=== PATIENT | female | born 2000 | race Hispanic/Latino ===

== ENCOUNTER 2023-03-15 20:30 | Emergency (ER) | payer MEDICAID ==
[~2023-03-15] VITALS: Ht 165.1 cm; Wt 83.9 kg
[~2023-03-15 20:30] MED LIST: FERR-72 PO; IBUP-2088 PO
[2023-03-15 20:37] VITALS: BP 133/72; PULSE 76; RESP 20
[2023-03-15] MEDS ORDERED: CYCLOBENZAPRINE HCL 10 MG TABLET PO ONE (21:30)
[2023-03-15] MEDS ORDERED: KETOROLAC 30MG VIAL (30MG/ML) IVP ONE (21:30)
[2023-03-15] MEDS ORDERED: CYCL10TA16 PO (23:44)
[2023-03-15] MEDS ORDERED: IBUP-2077 PO (23:44)
== END 2023-03-16 00:02 | disposition home or self-care (01) ==
LOC: EDH 20:30
DX: M62.830 Muscle spasm of back (principal); M54.50 Low back pain, unspecified; Z79.899 Other long term (current) drug therapy; Z90.49 Acquired absence of other specified parts of digestive tract
CPT/HCPCS: 99283; 96374; J1885